=== PATIENT | female | born 1995 | race Hispanic/Latino ===

== ENCOUNTER 2021-07-03 10:19 | Emergency (ER) | payer MEDICAID ==
[~2021-07-03] VITALS: Ht 154.9 cm; Wt 81.6 kg
[2021-07-03 10:57] LABS: APPEARANCE,URINE Cloudy (CLEAR); BILIRUBIN,URINE Negative (NEGATIVE); COLOR,URINE Yellow (YELLOW); GLUCOSE, URINE (UA) Negative (NEGATIVE); KETONES,URINE Negative (NEGATIVE); LEUKOCYTE ESTERASE ,URINE Trace (NEGATIVE); NITRATE,URINE Negative (NEGATIVE); OCCULT BLOOD,URINE Negative (NEGATIVE); PH,URINE 6.5 (5.0-8.0); PROTEIN,URINE Negative (NEGATIVE)
[2021-07-03 11:01] LABS: HCG,QUAL RESULT NEGATIVE (NEGATIVE)
[2021-07-03 11:07] LABS: BACTERIA,URINE Rare /HPF (None Seen); RBC,URINE 0-1 /HPF (0-1); SQUAMOUS EPITHELIAL CELL,UR Rare /HPF (0-2); WBC,URINE 0-1 /HPF (0-1)
[2021-07-03] MEDS ORDERED: CEPH500B PO (11:33)
[2021-07-03 12:01] VITALS: BP 116/79
== END 2021-07-03 12:03 | disposition home or self-care (01) ==
LOC: EDH 10:19
DX: N94.6 Dysmenorrhea, unspecified (principal); N39.0 Urinary tract infection, site not specified; Z98.890 Other specified postprocedural states
CPT/HCPCS: 81001; 81025

== ENCOUNTER 2023-09-25 08:36 | Emergency (ER) | payer MEDICAID ==
[~2023-09-25] VITALS: Ht 154.9 cm; Wt 83.5 kg
[~2023-09-25 08:36] MED LIST: CEPH500B PO
[2023-09-25] MEDS: LIDOCAINE HCL 2% VISCOUS 15 ML UDCUP PO ONE (08:55)
[2023-09-25] MEDS: NEOMYCIN/POLYMYXIN/HC OTIC SUSP 10ML BOTTLE AD SCH (10:01)
[2023-09-25 10:02] VITALS: BP 126/78; PULSE 70; RESP 17; O2SAT 98
== END 2023-09-25 10:25 | disposition home or self-care (01) ==
LOC: EDH 08:36
DX: T16.1XXA Foreign body in right ear, initial encounter (principal); X58.XXXA Exposure to other specified factors, initial encounter; Y93.89 Activity, other specified; Y92.89 Other specified places as the place of occurrence of the external cause; Y99.8 Other external cause status
CPT/HCPCS: 69200